=== PATIENT | female | born 1995 | race Caucasian/White ===

== ENCOUNTER 2017-12-27 14:44 | Emergency (ER) | payer MEDICARE, MEDICAID ==
[~2017-12-27] VITALS: Ht 157.5 cm; Wt 119.2 kg
[~2017-12-27 14:44] MED LIST: HYDR-569 PO; ONDA4TAB59 PO
[2017-12-27 15:10] VITALS: BP 108/57
[2017-12-27] MEDS ORDERED: CLIN300C85 PO (15:32)
== END 2017-12-27 15:39 | disposition home or self-care (01) ==
LOC: ER 14:45
DX: L02.416 Cutaneous abscess of left lower limb (principal); M79.7 Fibromyalgia; Z59.0 Homelessness; Z88.8 Allergy status to other drugs, medicaments and biological substances; Z88.1 Allergy status to other antibiotic agents
CPT/HCPCS: 99283

== ENCOUNTER 2018-07-12 14:13 | Emergency (ER) | payer MEDICARE, MEDICAID ==
[~2018-07-12] VITALS: Ht 157.5 cm; Wt 120.0 kg
[~2018-07-12 14:13] MED LIST changes: +CLIN-96 PO; +HYDR-4383 PO; -HYDR-569 PO
[2018-07-12 14:45] VITALS: BP 109/50
[2018-07-12] MEDS ORDERED: diphenhydrAMINE 50 mg/ml inj IV ONE (15:20)
[2018-07-12] MEDS ORDERED: ketorolac tromethamine 15mg/ml inj. IM ONE (15:20)
[2018-07-12] MEDS ORDERED: proCHLORperazine 10 MG/2 ml inj IV ONE (15:20)
[2018-07-12] MEDS ORDERED: cyclobenzaprine 10mg tablet PO ONE (15:20)
[2018-07-12] MEDS ORDERED: CYCL-1 PO (16:09)
[2018-07-12] MEDS ORDERED: ONDA4TAB6 PO (16:09)
== END 2018-07-12 16:22 | disposition home or self-care (01) ==
LOC: ER 14:14
DX: R51 Headache (principal); Z59.0 Homelessness; Z88.1 Allergy status to other antibiotic agents; Z88.2 Allergy status to sulfonamides; Z88.8 Allergy status to other drugs, medicaments and biological substances
CPT/HCPCS: 96372; 96374; 96375; 99283; J0780; J1200; J1885

== ENCOUNTER 2019-01-29 11:47 | Emergency (ER) | payer MEDICARE, MEDICAID ==
[~2019-01-29] VITALS: Ht 157.5 cm; Wt 125.0 kg
[~2019-01-29 11:47] MED LIST changes: +CYCL-1 PO; +ONDA4TAB6 PO
[2019-01-29 11:49] VITALS: BP 130/62
[2019-01-29] MEDS ORDERED: phenazopyridine 100mg tablet PO ONE (12:10)
[2019-01-29 12:14] LABS: CLARITY,URINE CLOUDY (Clear); COLOR,URINE YELLOW (Yellow); GLUCOSE, URINE NEGATIVE (Neg); KETONES,URINE TRACE mg/dl (Neg); LEUKOCYTE ESTERASE ,URINE TRACE (Neg); NITRITES, URINE POSITIVE (Neg); OCCULT BLOOD,URINE LARGE (Neg); PH,URINE 6.5 (4.8-8.0); PROTEIN,URINE 100 mg/dl (Neg); URINE HCG NEGATIVE (NEG)
[2019-01-29 12:37] LABS: UA COLLECTION TYPE CLN CATCH MIDSTREAM
[2019-01-29 12:40] LABS: MUCUS STRANDS MANY /LPF (Neg); SQUAMOUS EPITHELIAL CELL,UR MANY /LPF (FEW); TRANSITIONAL EPI CELLS,URINE MANY /HPF
[2019-01-29 12:41] LABS: WBC,URINE 20-30 /HPF (0-4)
[2019-01-29 12:42] LABS: BACTERIA,URINE 2+ /HPF (Neg); RBC,URINE 50-100 /HPF (0-2)
[2019-01-29 12:43] LABS: RENAL CELLS, URINE FEW /HPF
[2019-01-29] MEDS ORDERED: CIP750T PO (12:49)
[2019-01-29] MEDS ORDERED: CefTRIAXone 1000mg IM Kit (w/lidocaine diluent) IM ONE (12:50)
[2019-01-29] MEDS ORDERED: ciprofloxacin 250mg tablet PO ONE (12:50)
== END 2019-01-29 13:09 | disposition home or self-care (01) ==
LOC: ER 11:47
DX: N39.0 Urinary tract infection, site not specified (principal); F41.9 Anxiety disorder, unspecified; F31.9 Bipolar disorder, unspecified; Z59.0 Homelessness; Z88.8 Allergy status to other drugs, medicaments and biological substances; Z79.2 Long term (current) use of antibiotics; Z79.899 Other long term (current) drug therapy
CPT/HCPCS: 81001; 81025; 87077; 87088; 87186; 96372; 99283; J0696

== ENCOUNTER 2021-09-03 18:01 | Emergency (ER) | payer MEDICARE, MEDICAID ==
[~2021-09-03] VITALS: Ht 157.5 cm; Wt 100.0 kg
[~2021-09-03 18:01] MED LIST changes: -CLIN-96 PO; +CLIN-97 PO
[2021-09-03 18:07] VITALS: BP 139/78
--- NOTE | 2021-09-03 22:40 | NUR ---
PT SEEN LEAVING ER. INFORMED
== END 2021-09-03 22:41 | disposition left against medical advice (07) ==
LOC: ER 18:02
DX: L53.8 Other specified erythematous conditions (principal); M79.605 Pain in left leg; F31.9 Bipolar disorder, unspecified; F17.200 Nicotine dependence, unspecified, uncomplicated; Z59.00 Homelessness unspecified; Z88.8 Allergy status to other drugs, medicaments and biological substances; Z88.2 Allergy status to sulfonamides; Z79.899 Other long term (current) drug therapy
CPT/HCPCS: 99281